=== PATIENT | female | born 1990 | race Caucasian/White ===

== ENCOUNTER 2017-04-19 15:20 | Emergency (ER) | payer OTHER ==
[2017-04-19] MEDS: LIDOCAINE WITH 8.4% SOD BICARB 3 ML DISP.SYRIN. IJ (17:07)
[2017-04-19] MEDS: HYDROcodone/APAP 5/325MG 1 TAB TABLET PO (17:07)
== END 2017-04-19 18:41 | disposition home or self-care (01) ==
LOC: ER 15:20
DX: N75.0 Cyst of Bartholin's gland (principal); I10 Essential (primary) hypertension; Z87.442 Personal history of urinary calculi; Z98.890 Other specified postprocedural states; Z90.49 Acquired absence of other specified parts of digestive tract
CPT/HCPCS: 56405; 99284-25

== ENCOUNTER 2018-03-31 23:51 | Emergency (ER) | payer OTHER ==
[~2018-03-31] VITALS: Ht 149.9 cm; Wt 68.0 kg
[~2018-03-31 23:51] MED LIST: HYDR-3164 PO
[2018-04-01 00:39] LABS: BASO # 0.1 x10^3/uL (0.0-0.2); BASO % 1 % (0-3); EOS # 0.2 x10^3/uL (0.0-0.7); EOS % 1 % (0-3); HEMATOCRIT 44.7 % (36.0-47.0); HEMOGLOBIN 15.6 g/dL (12.0-15.5); LYMPH # 3.9 x10^3/uL (1.0-4.8); LYMPH % 27 % (24-48); MEAN CORPUSCULAR HEMOGLOBIN 31 pg (25-35); MEAN CORPUSCULAR HGB CONC 35 g/dL (31-37); MEAN CORPUSCULAR VOLUME 90 fL (79-100); MONO # 0.9 x10^3/uL (0.0-1.1); MONO % 6 % (0-9); NEUT # 9.4 x10^3uL (1.8-7.7); NEUT % 65 % (31-73); PLATELET COUNT 412 x10^3/uL (140-400); RED BLOOD COUNT 4.98 x10^6/uL (3.50-5.40); RED CELL DISTRIBUTION WIDTH 13.8 % (11.5-14.5); WHITE BLOOD COUNT 14.4 x10^3/uL (4.0-11.0)
[2018-04-01] MEDS ORDERED: HYDROcodone/APAP 5/325MG 1 TAB TABLET PO ONE (00:45)
[2018-04-01] MEDS ORDERED: ALPRAZolam 0.5 MG TABLET PO ONE (00:45)
[2018-04-01 00:52] LABS: ALBUMIN 3.2 g/dL (3.4-5.0); ALBUMIN/GLOBULIN RATIO 0.7 (1.0-1.7); CALCIUM 9.1 mg/dL (8.5-10.1); CREATININE 0.8 mg/dL (0.6-1.0); GFR 85.4; TOTAL BILIRUBIN 0.3 mg/dL (0.2-1.0)
[2018-04-01 00:55] LABS: POTASSIUM 2.9 mmol/L (3.5-5.1)
[2018-04-01] MEDS ORDERED: POTASSIUM CHLORIDE 20 MEQ TABLET.ER. PO ONE (01:00)
[2018-04-01] MEDS ORDERED: IV NORMAL SALINE 1000ML BAG 1,000 ML IV ONE (01:00)
[2018-04-01] MEDS ORDERED: CONTRAST GIVEN. MC PRN (01:15)
[2018-04-01] MEDS ORDERED: IOHEXOL 300 MG/ML 100ML VIAL. IV ONE (01:15)
[2018-04-01] MEDS ORDERED: CLIN300C8 PO (01:22)
--- NOTE | 2018-04-01 01:23 | PHYS DOC ---
Past Medical History Past Medical History: Anxiety, Hypertension, Kidney Stone, Other Additional Past Medical Histor: ADD Past Surgical History: Cholecystectomy, Additional Information: 0.5 PPD Alcohol Use: Occasionally Drug Use: None Adult General Chief Complaint Chief Complaint: DENTAL PROBLEM HPI HPI Patient is a 27 year old female who presents with dental pain and swelling to the right lower jaw. The patient was seen 4 days ago at her dentist office. They diagnosed with an abscess and placed her on Levaquin. She states that they told her she has to take antibiotics before they could pull the tooth. She states that yesterday she began having swelling to the jaw. She's been having intermittent fevers. She states that she has been taking the antibiotic as prescribed. Review of Systems Review of Systems Constitutional: See history of present illness Eyes: Denies change in visual acuity, redness, or eye pain [] HENT: See history of present illness Respiratory: Denies cough or shortness of breath [] Cardiovascular: No additional information not addressed in HPI [] GI: Denies abdominal pain, nausea, vomiting, bloody stools or diarrhea [] : Denies dysuria or hematuria [] Musculoskeletal: Denies back pain or joint pain [] Integument: Denies rash or skin lesions [] Neurologic: Denies headache, focal weakness or sensory changes [] Endocrine: Denies polyuria or polydipsia [] All other systems were reviewed and found to be within normal limits, except as documented in this note. Current Medications Current Medications Current Medications Medications (Trade) Dose Ordered Sig/Natalio Start Time Stop Time Status Last Admin Dose Admin Acetaminophen/ Hydrocodone Bitart (Lortab 5/325) 1 tab 1X ONCE 04/01/18 00:45 04/01/18 00:46 DC 04/01/18 00:42 1 TAB Alprazolam (Xanax) 0.5 mg 1X ONCE 04/01/18 00:45 04/01/18 00:46 DC 04/01/18 00:42 0.5 MG Clindamycin Phosphate 50 ml @ 100 mls/hr 1X ONCE 04/01/18 01:30 04/01/18 01:59 DC 04/01/18 01:31 100 MLS/HR Clonidine HCl (Catapres) 0.1 mg 1X ONCE 04/01/18 01:30 04/01/18 01:34 DC 04/01/18 01:36 0.1 MG Fentanyl Citrate (Fentanyl 2ml Vial) 50 mcg 1X ONCE 04/01/18 01:30 04/01/18 01:34 DC 04/01/18 01:37 50 MCG Info (CONTRAST GIVEN -- Rx MONITORING) 1 each PRN DAILY PRN 04/01/18 01:15 04/03/18 01:14 Iohexol (Omnipaque 300 Mg/ml) 70 ml 1X ONCE 04/01/18 01:15 04/01/18 01:16 DC 04/01/18 01:18 70 ML Potassium Chloride (Klor-Con) 40 meq 1X ONCE 04/01/18 01:00 04/01/18 01:01 DC 04/01/18 01:03 40 MEQ Sodium Chloride 1,000 ml @ 1,000 mls/hr 1X ONCE 04/01/18 01:00 04/01/18 01:59 DC 04/01/18 00:54 1,000 MLS/HR Allergies Allergies Allergies Coded Allergies Type Severity Reaction Last Updated Verified No Known Drug Allergies 04/19/17 No Physical Exam Physical Exam Constitutional: Well developed, well nourished, no acute distress, non-toxic appearance. [] HENT: Normocephalic, the patient has considerable swelling, calor and pain with palpation to the right lower jaw with erythema and edema noted to tooth #29 and #30 Eyes: PERRLA, EOMI, conjunctiva normal, no discharge. [] Neck: Normal range of motion, no tenderness, supple, no stridor. [] Cardiovascular:Heart rate regular rhythm, no murmur [] Lungs & Thorax: Bilateral breath sounds clear to auscultation [] Neurologic: Alert and oriented X 3, normal motor function, normal sensory function, no focal deficits noted. [] Psychologic: Affect normal, judgement normal, mood anxious Current Patient Data Vital Signs Vital Signs Date Time Temp Pulse Resp B/P (MAP) Pulse Ox O2 Delivery O2 Flow Rate FiO2 04/01/18 01:51 87 18 163/108 (126) 99 Room Air 03/31/18 23:51 98.2 98.2 Lab Values Laboratory Tests Test 04/01/18 00:32 04/01/18 00:45 White Blood Count 14.4 x10^3/uL (4.0-11.0) H Red Blood Count 4.98 x10^6/uL (3.50-5.40) Hemoglobin 15.6 g/dL (12.0-15.5) H Hematocrit 44.7 % (36.0-47.0) Mean Corpuscular Volume 90 fL (79-100) Mean Corpuscular Hemoglobin 31 pg (25-35) Mean Corpuscular Hemoglobin Concent 35 g/dL (31-37) Red Cell Distribution Width 13.8 % (11.5-14.5) Platelet Count 412 x10^3/uL (140-400) H Neutrophils (%) (Auto) 65 % (31-73) Lymphocytes (%) (Auto) 27 % (24-48) Monocytes (%) (Auto) 6 % (0-9) Eosinophils (%) (Auto) 1 % (0-3) Basophils (%) (Auto) 1 % (0-3) Neutrophils # (Auto) 9.4 x10^3uL (1.8-7.7) H Lymphocytes # (Auto) 3.9 x10^3/uL (1.0-4.8) Monocytes # (Auto) 0.9 x10^3/uL (0.0-1.1) Eosinophils # (Auto) 0.2 x10^3/uL (0.0-0.7) Basophils # (Auto) 0.1 x10^3/uL (0.0-0.2) Sodium Level 141 mmol/L (136-145) Potassium Level 2.9 mmol/L (3.5-5.1) *L Chloride Level 103 mmol/L (98-107) Carbon Dioxide Level 31 mmol/L (21-32) Anion Gap 7 (6-14) Blood Urea Nitrogen 12 mg/dL (7-20) Creatinine 0.8 mg/dL (0.6-1.0) Estimated GFR (Cockcroft-Gault) 85.4 BUN/Creatinine Ratio 15 (6-20) Glucose Level 80 mg/dL (70-99) Calcium Level 9.1 mg/dL (8.5-10.1) Total Bilirubin 0.3 mg/dL (0.2-1.0) Aspartate Amino Transferase (AST) 15 U/L (15-37) Alanine Aminotransferase (ALT) 28 U/L (14-59) Alkaline Phosphatase 94 U/L (46-116) Total Protein 8.0 g/dL (6.4-8.2) Albumin 3.2 g/dL (3.4-5.0) L Albumin/Globulin Ratio 0.7 (1.0-1.7) L POC Urine HCG, Qualitative Hcg negative (Negative) Laboratory Tests 04/01/18 00:32 Laboratory Tests 04/01/18 00:32 EKG EKG [] Radiology/Procedures Radiology/Procedures [PROCEDURE: CT MAXILLOFACIAL W/CONTRAST CT maxillofacial with contrast 04/01/2018. Reason for exam: Fever and swelling. Tooth pain. Helical CT images were performed. Sagittal and coronal reconstructions were obtained. 70 mL Omnipaque 300 was used for the exam. Exposure: One or more of the following individualized dose reduction techniques were utilized for this examination: 1. Automated exposure control 2. Adjustment of the mA and/or kV according to patient size 3. Use of iterative reconstruction technique. FINDINGS: Soft tissue swelling is seen along the right jaw adjacent to the mandible. No rim-enhancing soft tissue fluid collection is seen to indicate an abscess. There are some caries involving multiple teeth, including a right mandibular molar near the area of soft tissue swelling. However, no periapical abscess is seen in this region. There is a small periapical lucency adjacent to the left maxillary second bicuspid. There are some prominent lymph nodes in the neck, likely reactive in nature. A right submandibular node measures about 12 x 10 mm. Mildly enlarged jugulodigastric nodes are seen on each side. The salivary glands appear normal. The tonsils are mildly prominent without apparent mass. There is no significant sinus disease. IMPRESSION: Soft tissue swelling of the right face consistent with cellulitis. No soft tissue abscess is seen. There are dental caries, but no tooth abscess is shown in the area of inflammation. ] Course & Med Decision Making Course & Med Decision Making Pertinent Labs and Imaging studies reviewed. (See chart for details) []The patient was given Xanax and [place] in the emergency department for anxiety and pain. She has been given a liter of fluid as well as 40 mg of potassium by mouth. 0119-care of this patient was transferred to Dr. Bee. We are waiting for the CT scan to be performed. 2:00 AM:Patient remains stable. I discussed test results, the need for close follow-up, and return precautions. I've examined the patient. There is no airway involvement. She does have generalized dental decay, which, despite the CT scan, might be dental related. I stressed importance of smoking cessation and dental follow-up. Dragon Disclaimer Dragon Disclaimer This electronic medical record was generated, in whole or in part, using a voice recognition dictation system. Departure Departure Impression: Primary Impression: Dental abscess Disposition: HOME, SELF-CARE Condition: STABLE Referrals: UNKNOWN PCP NAME (PCP) Patient Instructions: Cellulitis, Dental Abscess, Hypokalemia Additional Instructions: Take the medication as prescribed. Keep your follow-up appointment with your dentist for removal of this tooth. If worsening return to the emergency department. Scripts Potassium Chloride (POTASSIUM CHLORIDE) 20 Meq Tablet.er 20 MEQ PO DAILY for 10 Days, #10 TAB.SR Prov: AGUILAR BEE MD 04/01/18 Clindamycin Hcl (CLINDAMYCIN HCL) 300 Mg Capsule 1 CAP PO TID for dental abscess, #30 CAP Prov: JADIEL SAM APRN 04/01/18 JADIEL SAM APRN Apr 01, 2018 01:23 AGUILAR BEE MD Apr 01, 2018 01:46
[2018-04-01] MEDS ORDERED: CLINDAMYCIN 900MG PREMIX 50 ML IV ONE (01:30)
[2018-04-01] MEDS ORDERED: cloNIDine HCL 0.1 MG TABLET PO ONE (01:30)
[2018-04-01] MEDS ORDERED: fentaNYL PF VIAL 100 MCG/2 ML VIAL IV ONE (01:30)
--- NOTE | 2018-04-01 01:44 | RAD ---
CT maxillofacial with contrast 04/01/2018. Reason for exam: Fever and swelling. Tooth pain. Helical CT images were performed. Sagittal and coronal reconstructions were obtained. 70 mL Omnipaque 300 was used for the exam. Exposure: One or more of the following individualized dose reduction techniques were utilized for this examination: 1. Automated exposure control 2. Adjustment of the mA and/or kV according to patient size 3. Use of iterative reconstruction technique. FINDINGS: Soft tissue swelling is seen along the right jaw adjacent to the mandible. No rim-enhancing soft tissue fluid collection is seen to indicate an abscess. There are some caries involving multiple teeth, including a right mandibular molar near the area of soft tissue swelling. However, no periapical abscess is seen in this region. There is a small periapical lucency adjacent to the left maxillary second bicuspid. There are some prominent lymph nodes in the neck, likely reactive in nature. A right submandibular node measures about 12 x 10 mm. Mildly enlarged jugulodigastric nodes are seen on each side. The salivary glands appear normal. The tonsils are mildly prominent without apparent mass. There is no significant sinus disease. IMPRESSION: Soft tissue swelling of the right face consistent with cellulitis. No soft tissue abscess is seen. There are dental caries, but no tooth abscess is shown in the area of inflammation. Electronically signed by: Willy Navarrete Jr., MD (04/01/2018 1:39 AM) [id number]
[2018-04-01 01:51] VITALS: BP 163/108
[2018-04-01] MEDS ORDERED: POTA20TA82 PO (02:07)
== END 2018-04-01 02:20 | disposition home or self-care (01) ==
LOC: ER 23:51
DX: K04.7 Periapical abscess without sinus (principal); F17.210 Nicotine dependence, cigarettes, uncomplicated; I10 Essential (primary) hypertension; F41.9 Anxiety disorder, unspecified; Z90.49 Acquired absence of other specified parts of digestive tract
CPT/HCPCS: 36415; 70487; 80053; 81025; 85025; 96365; 96375; 99284; J3010; J3490; J7030; Q9967

== ENCOUNTER 2018-11-09 15:08 | Emergency (ER) | payer SELFPAY ==
[~2018-11-09] VITALS: Ht 149.9 cm; Wt 65.8 kg
[~2018-11-09 15:08] MED LIST changes: +CLIN300C8 PO; +POTA20TA82 PO
[2018-11-09 15:56] VITALS: BP 227/137
--- NOTE | 2018-11-09 16:12 | PHYS DOC ---
Past Medical History Past Medical History: Anxiety, Hypertension, Kidney Stone, Other Additional Past Medical Histor: ADD Past Surgical History: Cholecystectomy, Smoking: Cigarettes, Less than 1pk/day Alcohol Use: Occasionally Drug Use: None Adult General Chief Complaint Chief Complaint: INSECT BITE HPI HPI Patient is a 27 year old female that presents with an abscess to her left leg. The patient states that this started on Wednesday. Patient thinks she got bit by a mosquito but is not really sure what she got bit by. She rates her pain as 9 out of 10 and sharp and tender. The patient states she is not taking any medicine for this so far. Review of Systems Review of Systems Constitutional: Denies fever or chills [] Eyes: Denies change in visual acuity, redness, or eye pain [] HENT: Denies nasal congestion or sore throat [] Respiratory: Denies cough or shortness of breath [] Cardiovascular: No additional information not addressed in HPI [] GI: Denies abdominal pain, nausea, vomiting, bloody stools or diarrhea [] : Denies dysuria or hematuria [] Musculoskeletal: Denies back pain or joint pain [] Integument: Reports abscess to the L leg above the knee (posterior). Neurologic: Denies headache, focal weakness or sensory changes [] Endocrine: Denies polyuria or polydipsia [] Complete systems were reviewed and found to be within normal limits, except as documented in this note. Current Medications Current Medications Current Medications Medications (Trade) Dose Ordered Sig/Natalio Start Time Stop Time Status Last Admin Dose Admin Acetaminophen/ Hydrocodone Bitart (Lortab 5/325) 1 tab 1X ONCE 11/09/18 16:15 11/09/18 16:16 DC 11/09/18 16:22 1 TAB Clindamycin HCl (Cleocin) 450 mg 1X ONCE 11/09/18 16:15 11/09/18 16:16 DC 11/09/18 16:22 450 MG Lidocaine HCl 20 ml 1X ONCE 11/09/18 16:15 11/09/18 16:16 DC 11/09/18 16:22 20 ML Allergies Allergies Allergies Coded Allergies Type Severity Reaction Last Updated Verified No Known Drug Allergies 04/19/17 No Physical Exam Physical Exam Constitutional: Well developed, well nourished, no acute distress, non-toxic appearance. [] HENT: Normocephalic, atraumatic, bilateral external ears normal, oropharynx moist, no oral exudates, nose normal. [] Eyes: PERRLA, EOMI, conjunctiva normal, no discharge. [] Neck: Normal range of motion, no tenderness, supple, no stridor. [] Cardiovascular:Heart rate regular rhythm, no murmur [] Lungs & Thorax: Bilateral breath sounds clear to auscultation [] Abdomen: Bowel sounds normal, soft, no tenderness, no masses, no pulsatile masses. [] Skin: Abscess with cellulitis posterior and superior to the left knee. The abscess has fluctuance. Back: No tenderness, no CVA tenderness. [] Extremities: No tenderness, no cyanosis, no clubbing, ROM intact, no edema. [] Neurologic: Alert and oriented X 3, normal motor function, normal sensory function, no focal deficits noted. [] Psychologic: Affect normal, judgement normal, mood normal. [] Current Patient Data Vital Signs Vital Signs Date Time Temp Pulse Resp B/P (MAP) Pulse Ox O2 Delivery O2 Flow Rate FiO2 11/09/18 16:22 24 99 Room Air 11/09/18 15:56 98.4 100 227/137 (167) 98.4 EKG EKG [] Radiology/Procedures Radiology/Procedures Indication: abscess Procedure: The patient was positioned appropriately. Local anesthesia was 2% lidocaine An incision was then made over the apex of the lesion and copious material was expressed. The drainage cavity was irrigated and packed with sterile gauze. The patient�s tetanus status updated as needed. The patient tolerated the procedure well. Complications: none. Course & Med Decision Making Course & Med Decision Making Pertinent Labs and Imaging studies reviewed. (See chart for details) Will perform an I/D and give [place] and Clindamycin in Er. Performed I/D and will d/c. Dragon Disclaimer Dragon Disclaimer This electronic medical record was generated, in whole or in part, using a voice recognition dictation system. Departure Departure Impression: Primary Impression: Cellulitis and abscess of left leg Disposition: HOME, SELF-CARE Condition: STABLE Referrals: UNKNOWN PCP NAME (PCP) Patient Instructions: Abscess, Care After, Abscess, [id number], Cellulitis, [id number] Additional Instructions: Thank you for visiting [facility]. We appreciate you trusting us with your care. If any additional problems come up don't hesitate to return to visit us. Please follow up with your primary care provider so they can plan additional care if needed and know about the problem that you had. If symptoms worsen come back to the Emergency Department. Any concerning symptoms that start such as chest pain, shortness of air, weakness or numbness on one side of the body, running high fevers or any other concerning symptoms return to the ER. You have been prescribed an antibiotic today to help fight your infection. Please take all of the antibiotic as directed. If after 48 hours the infection is not improving, please return for more care. If the infection worsens, return to ER for additional care. Please fill your medications at any pharmacy and follow the prescription instructions. Please have the packing removed in 2 days. Scripts Ondansetron (ONDANSETRON ODT) 4 Mg Tab.rapdis 1 TAB PO PRN Q6-8HRS PRN for NAUSEA, #16 TAB Prov: TEODORO HIGGINS APRN 11/09/18 Clindamycin Hcl (CLINDAMYCIN HCL) 150 Mg Capsule 3 CAP PO TID for 7 Days, #63 CAP Prov: TEODORO HIGGINS APRN 11/09/18 ETODORO HIGGINS APRN Nov 09, 2018 16:12
[2018-11-09] MEDS ORDERED: CLINDAMYCIN HCL 150 MG CAPSULE. PO ONE (16:15)
[2018-11-09] MEDS ORDERED: LIDOCAINE 2% 20 ML VIAL. IJ ONE (16:15)
[2018-11-09] MEDS ORDERED: HYDROcodone/APAP 5/325MG 1 TAB TABLET PO ONE (16:15)
[2018-11-09] MEDS ORDERED: CLIN150C14 PO (17:13)
[2018-11-09] MEDS ORDERED: ONDA4TAB12 PO (17:13)
[2018-11-09] MEDS ORDERED: ONDANSETRON ODT 4 MG TAB.RAPDIS. PO ONE (17:15)
== END 2018-11-09 17:30 | disposition home or self-care (01) ==
LOC: ER 15:08
DX: L02.416 Cutaneous abscess of left lower limb (principal); L03.116 Cellulitis of left lower limb; I10 Essential (primary) hypertension; F17.210 Nicotine dependence, cigarettes, uncomplicated; Z87.442 Personal history of urinary calculi
CPT/HCPCS: 10060; 99283; J2001